=== PATIENT | male | born 1945 ===

== ENCOUNTER 2025-03-03 09:01 | Outpatient (CLI) | payer MEDICARE | END 2025-03-03 09:02 | disposition home or self-care (01) | LOC: CSHSLEEP 09:01 | PROVIDERS: ATTEND Internal Medicine | DX: G47.33 Obstructive sleep apnea (adult) (pediatric) (principal); R06.83 Snoring; E66.9 Obesity, unspecified; Z68.38 Body mass index [BMI] 38.0-38.9, adult; G47.31 Primary central sleep apnea; R09.02 Hypoxemia | CPT/HCPCS: 95811 ==